=== PATIENT | female | born 1960 | race Two or more races ===

== ENCOUNTER 2024-05-29 16:58 | Emergency (ER) | payer MEDICAID, OTHER ==
[~2024-05-29] VITALS: Ht 157.5 cm; Wt 61.0 kg
[2024-05-29 17:13] VITALS: BP 129/70; PULSE 77; RESP 14; TEMP 98.6; O2SAT 98
[2024-05-29] MEDS ORDERED: GLIM-8 PO (19:06)
[2024-05-29] MEDS ORDERED: SIMV-46 PO (19:06)
[2024-05-29] MEDS ORDERED: INSU100I93 SQ (19:06)
[2024-05-29] MEDS ORDERED: INSU3INS3 SQ (19:06)
[2024-05-29] MEDS ORDERED: METF-446 PO (19:06)
[2024-05-29 19:43] LABS: BASOPHILS % (AUTO) 0.6 % (0.0-2.0); EOSINOPHILS % (AUTO) 2.2 % (1.0-6.0); HEMATOCRIT 42.5 % (36-46); HEMOGLOBIN 14.3 g/dL (12.0-16.0); LYMPHOCYTES # (AUTO) 2.6 K/uL (1.0-4.8); LYMPHOCYTES % (AUTO) 38.4 % (22.0-44.0); MEAN CORPUSCULAR HEMOGLOBIN 30.9 pg (26.0-34.0); MEAN CORPUSCULAR HGB CONC 33.7 G/dL (31.0-37.0); MEAN CORPUSCULAR VOLUME 92 fL (80-100); MONOCYTES # (AUTO) 0.5 K/uL (0.1-1.0); MONOCYTES % (AUTO) 7.6 % (2.0-9.0); NEUTROPHILS # (AUTO) 3.5 K/uL (1.8-7.7); NEUTROPHILS % (AUTO) 51.2 % (40.0-70.0); PLATELET COUNT (AUTO) 229 K/uL (150-450); RED BLOOD CELL COUNT(AUTO) 4.63 MIL/uL (4.00-5.20); WHITE BLOOD COUNT (AUTO) 6.7 K/uL (4.5-11.0)
[2024-05-29 19:48] LABS: CALCIUM, TOTAL 9.1 mg/dL (8.8-10.5); CREATININE 0.99 mg/dL (0.60-1.30); POTASSIUM 4.6 mmol/L (3.5-5.1)
[2024-05-29 21:44] LABS: APPEARANCE,URINE CLEAR (CLEAR); BILIRUBIN,URINE NEGATIVE (NEGATIVE); COLOR,URINE COLORLESS (YELLOW); GLUCOSE, URINE (UA) >=1000 mg/dL (NEGATIVE); KETONES,URINE NEGATIVE (NEGATIVE); LEUKOCYTE ESTERASE ,URINE NEGATIVE (NEGATIVE); NITRATE,URINE NEGATIVE (NEGATIVE); OCCULT BLOOD,URINE NEGATIVE (NEGATIVE); PROTEIN,URINE NEGATIVE (NEGATIVE); SPECIFIC GRAVITIY, URINE 1.028 (1.003-1.030); UROBILINOGEN,URINE <=1.0 mg/dL (<=1.0)
[2024-05-29 21:56] LABS: BACTERIA,URINE None Seen /HPF (None Seen); RBC,URINE None Seen /HPF (0-2); WBC,URINE None Seen /HPF (0-5)
[2024-05-29] MEDS: SODIUM CHLORIDE 0.9% 1,000 ML IV ONE (22:27)
[2024-05-29] MEDS: INSULIN REGULAR, HUMAN 100 UNITS/ML IVP ONE (23:12)
[2024-05-29] MEDS: TraMADol HCL 50 MG TABLET PO ONE (23:14)
[2024-05-30] MEDS ORDERED: TRAM50TA5 PO (01:12)
== END 2024-05-30 03:09 | disposition home or self-care (01) ==
LOC: EMS 16:58
DX: M13.832 Other specified arthritis, left wrist (principal); M77.8 Other enthesopathies, not elsewhere classified; E11.65 Type 2 diabetes mellitus with hyperglycemia
CPT/HCPCS: 99284; 96374; 96361; 80048; 81001; 82009; 82962 ×2; 85025; 36415; 73110; J1815; J7030

== ENCOUNTER 2024-11-06 21:36 | Emergency (ER) | payer OTHER ==
[~2024-11-06] VITALS: Ht 157.5 cm; Wt 62.0 kg
[~2024-11-06 21:36] MED LIST: GLIM-8 PO; INSU100I93 SQ; INSU3INS3 SQ; METF-446 PO; SIMV-46 PO; TRAM50TA5 PO
[2024-11-06 22:32] VITALS: BP 146/70; PULSE 77; RESP 18; TEMP 98.2; O2SAT 98
[2024-11-06] MEDS ORDERED: PERTUSS(ACELL),DIPH,TET/PF 0.5 ML SYRINGE [ADULT] IM. ONE (23:30)
[2024-11-06] MEDS ORDERED: IBUPROFEN 600 MG TABLET PO ONE (23:30)
[2024-11-06] MEDS ORDERED: HYDR-4062 PO (23:39)
[2024-11-06] MEDS ORDERED: IBUP-1554 PO (23:39)
[2024-11-06] MEDS: INSULIN REGULAR, HUMAN 100 UNITS/ML SQ ONE (23:44)
[2024-11-06] MEDS: KETOROLAC TROMETHAMINE 60 MG/2 ML VIAL IM ONE (23:46)
[2024-11-06] MEDS: HYDROCODONE/ACETAMINOPHEN 5-325 MG TABLET PO ONE (23:46)
[2024-11-06] MEDS: BACITRACIN 28 GM OINTMENT TP ONE (23:46)
== END 2024-11-07 00:22 | disposition home or self-care (01) ==
LOC: EMS 21:36
DX: T24.212A Burn of second degree of left thigh, initial encounter (principal); E11.65 Type 2 diabetes mellitus with hyperglycemia; T31.0 Burns involving less than 10% of body surface; Z79.4 Long term (current) use of insulin; Z79.84 Long term (current) use of oral hypoglycemic drugs
CPT/HCPCS: 99284; 82962; 16020; 96372; J1885; J1815

== ENCOUNTER 2025-03-19 07:31 | Emergency (ER) | payer OTHER ==
[~2025-03-19] VITALS: Ht 157.5 cm; Wt 63.0 kg
[~2025-03-19 07:31] MED LIST changes: +HYDR-4062 PO; +IBUP-1554 PO
[2025-03-19 07:51] VITALS: TEMP 99.1
[2025-03-19] MEDS ORDERED: CIPROFLOXACIN HCL 250 MG TABLET PO ONE (08:00)
[2025-03-19] MEDS ORDERED: DIPHENOXYLATE/ATROP 2.5-0.025 MG TABLET PO ONE (08:00)
[2025-03-19 08:05] LABS: GLUCOMETER DEV NAME(LOC) ERT.7; GLUCOSE,POINT OF CARE 263 MG/DL (70-110)
[2025-03-19 08:19] LABS: BASOPHILS % (AUTO) 0.6 % (0.0-2.0); EOSINOPHILS % (AUTO) 0.4 % (1.0-6.0); HEMATOCRIT 37.6 % (36-46); HEMOGLOBIN 12.8 g/dL (12.0-16.0); LYMPHOCYTES # (AUTO) 1.1 K/uL (1.0-4.8); LYMPHOCYTES % (AUTO) 11.7 % (22.0-44.0); MEAN CORPUSCULAR HEMOGLOBIN 30.4 pg (26.0-34.0); MEAN CORPUSCULAR VOLUME 90 fL (80-100); MONOCYTES # (AUTO) 1.1 K/uL (0.1-1.0); MONOCYTES % (AUTO) 11.4 % (2.0-9.0); NEUTROPHILS % (AUTO) 75.9 % (40.0-70.0); PLATELET COUNT (AUTO) 244 K/uL (150-450); RED CELL DISTRIBUTION WIDTH 13.1 % (11.5-14.5); WHITE BLOOD COUNT (AUTO) 9.3 K/uL (4.5-11.0)
[2025-03-19 08:19] LABS: COVID AG,FIA SOURCE NASAL SWAB
[2025-03-19 08:25] LABS: CALCIUM, TOTAL 9.1 mg/dL (8.8-10.5); POTASSIUM 4.4 mmol/L (3.5-5.1)
[2025-03-19 08:27] LABS: APPEARANCE,URINE CLEAR (CLEAR); BILIRUBIN,URINE NEGATIVE (NEGATIVE); COLOR,URINE YELLOW (YELLOW); GLUCOSE, URINE (UA) >=1000 mg/dL (NEGATIVE); KETONES,URINE NEGATIVE (NEGATIVE); LEUKOCYTE ESTERASE ,URINE NEGATIVE (NEGATIVE); NITRATE,URINE NEGATIVE (NEGATIVE); OCCULT BLOOD,URINE TRACE (NEGATIVE); PH,URINE 5.5 (5.0-8.0); PROTEIN,URINE NEGATIVE (NEGATIVE); SPECIFIC GRAVITIY, URINE 1.037 (1.003-1.030); UROBILINOGEN,URINE <=1.0 mg/dL (<=1.0)
[2025-03-19] MEDS: SODIUM CHLORIDE 0.9% 1,000 ML IV ONE (08:33)
[2025-03-19 08:34] VITALS: BP 140/73; PULSE 85; RESP 18; O2SAT 99
[2025-03-19 08:37] LABS: BACTERIA,URINE None Seen /HPF (None Seen); RBC,URINE 0-2 /HPF (0-2); WBC,URINE None Seen /HPF (0-5)
[2025-03-19 08:40] LABS: SARS-COV2 (COVID) ANTIGEN,FIA Negative (Negative)
[2025-03-19 08:41] LABS: INFLUENZA TYPE A NEGATIVE FOR TYPE A (NEGATIVE); INFLUENZA TYPE B NEGATIVE FOR TYPE B (NEGATIVE)
[2025-03-19] MEDS: CefTRIAXone 1 GM/DEXTROSE 50 ML IV ONE (09:35)
[2025-03-19] MEDS: KETOROLAC TROMETHAMINE 30 MG/ML VIAL IVP ONE (09:36)
== END 2025-03-19 10:33 | disposition home or self-care (01) ==
LOC: EMS 07:31
DX: N39.0 Urinary tract infection, site not specified (principal); E11.9 Type 2 diabetes mellitus without complications; R30.0 Dysuria; Z79.899 Other long term (current) drug therapy; Z20.822 Contact with and (suspected) exposure to COVID-19
CPT/HCPCS: 99284; 96365; 96361; 96375; 87426; 80048; 81001; 82962; 85025; 87804; 36415; J1885; J0696; J7030

== ENCOUNTER 2025-03-21 10:44 | Emergency (ER) | payer OTHER ==
[~2025-03-21] VITALS: Ht 160 cm; Wt 63.6 kg
[2025-03-21 10:49] VITALS: BP 98/83; PULSE 84; RESP 18; TEMP 97.5; O2SAT 99
[2025-03-21 11:34] LABS: APPEARANCE,URINE CLEAR (CLEAR); BILIRUBIN,URINE NEGATIVE (NEGATIVE); COLOR,URINE YELLOW (YELLOW); GLUCOSE, URINE (UA) >=1000 mg/dL (NEGATIVE); LEUKOCYTE ESTERASE ,URINE NEGATIVE (NEGATIVE); NITRATE,URINE NEGATIVE (NEGATIVE); OCCULT BLOOD,URINE TRACE (NEGATIVE); PH,URINE 5.5 (5.0-8.0); PROTEIN,URINE TRACE mg/dL (NEGATIVE); SPECIFIC GRAVITIY, URINE 1.036 (1.003-1.030); UROBILINOGEN,URINE <=1.0 mg/dL (<=1.0)
[2025-03-21 11:37] LABS: BACTERIA,URINE None Seen /HPF (None Seen); RBC,URINE None Seen /HPF (0-2); SQUAMOUS EPITHELIAL CELL,UR Rare /LPF (None Seen); WBC,URINE None Seen /HPF (0-5)
[2025-03-21] MEDS ORDERED: CIPR250T6 PO (12:39)
[2025-03-21] MEDS ORDERED: ACET-66 PO (12:39)
[2025-03-21] MEDS ORDERED: GUAIFDM PO (12:39)
[2025-03-21] MEDS: ACETAMINOPHEN 500 MG TABLET PO ONE (12:44)
[2025-03-21] MEDS: GuaiFENesin/D-METHORPHAN [SUGAR-FREE] 200-20MG/10 ML SYRUP UDCUP PO ONE (12:44)
== END 2025-03-21 12:53 | disposition home or self-care (01) ==
LOC: EMS 10:46
DX: J18.9 Pneumonia, unspecified organism (principal); J06.9 Acute upper respiratory infection, unspecified; E11.9 Type 2 diabetes mellitus without complications; N39.3 Stress incontinence (female) (male); Z79.899 Other long term (current) drug therapy
CPT/HCPCS: 81001; 82962; 99283

== ENCOUNTER 2025-06-09 08:09 | Emergency (ER) | payer OTHER ==
[~2025-06-09] VITALS: Ht 157.5 cm; Wt 60.0 kg
[~2025-06-09 08:09] MED LIST changes: +ACET-66 PO; +CIPR250T6 PO; +GUAIFDM PO; -TRAM50TA5 PO
[2025-06-09 08:14] VITALS: TEMP 98.5
[2025-06-09 09:18] LABS: APPEARANCE,URINE CLEAR (CLEAR); GLUCOSE, URINE (UA) >=1000 mg/dL (NEGATIVE); LEUKOCYTE ESTERASE ,URINE SMALL (NEGATIVE); NITRATE,URINE NEGATIVE (NEGATIVE); OCCULT BLOOD,URINE NEGATIVE (NEGATIVE); SPECIFIC GRAVITIY, URINE 1.031 (1.003-1.030)
[2025-06-09 09:30] VITALS: BP 125/71; PULSE 65; RESP 17; O2SAT 98
[2025-06-09 09:34] LABS: SQUAMOUS EPITHELIAL CELL,UR Few /LPF (None Seen)
[2025-06-09] MEDS ORDERED: PHEN-846 PO (09:52)
[2025-06-09] MEDS: PHENAZOPYRIDINE HCL 100 MG TABLET PO ONE (09:54)
== END 2025-06-09 10:14 | disposition home or self-care (01) ==
LOC: EMS 08:09
DX: R30.0 Dysuria (principal); R35.0 Frequency of micturition; E11.9 Type 2 diabetes mellitus without complications; Z79.899 Other long term (current) drug therapy
CPT/HCPCS: 81001; 82962; 99283